=== PATIENT | male | born 1980 | race Caucasian/White ===

== ENCOUNTER 2018-07-17 19:22 | Emergency (ER) | payer BC ==
[2018-07-17 21:52] LABS: ANION GAP 14.3; CHLORIDE,CL 96 mmol/L (101-111); SODIUM,NA 133 mmol/L (135-145)
--- NOTE | 2018-07-17 22:09 | EDM.PDOC ---
ED HPI GENERAL MEDICAL PROBLEM - General Chief Complaint: Lower Extremity Injury/Pain Stated Complaint: SWOLLEN LEFT FOOT [id number] Time Seen by Provider: 07/17/18 22:06 Source of Information: Reports: Patient History Limitations: Reports: No Limitations - History of Present Illness INITIAL COMMENTS - FREE TEXT/NARRATIVE: This 38 yo male patient reports to the ED with pain and swelling in his left foot. The patient reports he has a history of a blood clot in his right lower extremity and compartment syndrome in his left lower extremity. Onset: Today Duration: Hour(s):, Constant Location: Reports: Upper Extremity, Left Quality: Reports: Ache, Dull Severity: Moderate Improves with: Reports: None Worsens with: Reports: None Context: Reports: Other Associated Symptoms: Reports: No Other Symptoms Left Feet Pain Score (Numeric/FACES): 7 - Related Data Allergies Allergy/AdvReac Type Severity Reaction Status Date / Time cephalexin monohydrate Allergy Rash Verified 07/17/18 21:03 [From Keflex] Home Meds: Home Meds Lisinopril/Hydrochlorothiazide [Lisinopril-Hctz 20-25 mg Tab] 1 each PO DAILY [History] Simvastatin 2 mg PO DAILY 03/21/18 [History] Ezetimibe 10 mg PO DAILY 07/17/18 [History] Warfarin Sodium [Jantoven] 15 mg PO DAILY 07/17/18 [History] Past Medical History Cardiovascular History: Reports: High Cholesterol, Hypertension Genitourinary History: Reports: Acute Renal Failure Musculoskeletal History: Reports: Other (See Below) Other Musculoskeletal History: compartment syndrome. bone spurt left foot Social & Family History - Tobacco Use Smoking Status *Q: Never Smoker - Caffeine Use Caffeine Use: Reports: Soda - Alcohol Use Date of Last Drink: 05/13/18 - Recreational Drug Use Recreational Drug Use: No Review of Systems - Review of Systems Review Of Systems: ROS reveals no pertinent complaints other than HPI. ED EXAM, GENERAL - Physical Exam Exam: See Below Exam Limited By: No Limitations General Appearance: Alert, WD/WN, Mild Distress Eye Exam: Bilateral Eye: EOMI, Normal Inspection, PERRL Ears: Normal External Exam, Normal Canal, Hearing Grossly Normal, Normal TMs Nose: Normal Inspection, Normal Mucosa, No Blood Throat/Mouth: Normal Inspection, Normal Lips, Normal Teeth, Normal Gums, Normal Oropharynx, Normal Voice, No Airway Compromise Head: Atraumatic, Normocephalic Neck: Normal Inspection, Supple, Non-Tender, Full Range of Motion Respiratory/Chest: No Respiratory Distress, Lungs Clear, Normal Breath Sounds, No Accessory Muscle Use, Chest Non-Tender Cardiovascular: Normal Peripheral Pulses, Regular Rate, Rhythm, No Edema, No Gallop, No JVD, No Murmur, No Rub GI/Abdominal: Normal Bowel Sounds, Soft, Non-Tender, No Organomegaly, No Distention, No Abnormal Bruit, No Mass (Male) Exam: Deferred Rectal (Males) Exam: Deferred Back Exam: Normal Inspection, Full Range of Motion, NT Extremities: Leg Pain (left lower leg swelling and increased tenderness to palpation of lower leg and foot) Neurological: Alert, Oriented, CN II-XII Intact, Normal Cognition, Normal Gait, Normal Reflexes, No Motor/Sensory Deficits Psychiatric: Normal Affect, Normal Mood Skin Exam: Warm, Dry, Intact, Normal Color, No Rash Lymphatic: No Adenopathy Course - Vital Signs Last Recorded V/S: Last Vital Signs Temp 37.0 C 07/17/18 20:49 Pulse 115 H 07/17/18 20:49 Resp 18 07/17/18 20:49 BP 110/69 07/17/18 20:49 Pulse Ox 97 07/17/18 20:49 - Orders/Labs/Meds Orders: Active Orders 24 hr Category Date Time Status Venous Doppler Lwr Ext Lt [US] Urgent Exams 07/17/18 22:07 Taken DME for Discharge [COMM] Urgent Oth 07/17/18 23:12 Ordered Labs: Laboratory Tests 07/17/18 07/17/18 07/17/18 Range/Units 21:24 21:24 21:24 WBC 11.0 H (5.0-10.0) 10^3/uL RBC 5.00 (4.6-6.2) 10^6/uL Hgb 14.4 (14.0-18.0) g/dL Hct 43.0 (40.0-54.0) % MCV 86.0 (80-100) fL MCH 28.8 (27.0-34.0) pg MCHC 33.5 (33.0-35.0) g/dL Plt Count 286 (150-450) 10^3/uL Neut % (Auto) 71.8 (42.2-75.2) % Lymph % (Auto) 18.7 L (20.5-50.1) % Tyler % (Auto) 8.4 H (2-8) % Eos % (Auto) 0.6 L (1.0-3.0) % Baso % (Auto) 0.5 (0.0-1.0) % PT 13.7 H (9.0-12.0) SEC INR 1.4 H (0.9-1.2) D-Dimer, Quantitative 711 H (0-400) ng/mL Sodium 133 L (135-145) mmol/L Potassium 3.3 L (3.6-5.0) mmol/L Chloride 96 L (101-111) mmol/L Carbon Dioxide 26.0 (21.0-31.0) mmol/L Anion Gap 14.3 BUN 16 (7-18) mg/dL Creatinine 1.0 (0.6-1.3) mg/dL Est Cr Clr Drug Dosing 102.40 mL/min Estimated GFR (MDRD) > 60 BUN/Creatinine Ratio 16.00 Glucose 95 (74-105) mg/dL Calcium 8.8 (8.4-10.2) mg/dl Total Bilirubin 0.7 (0.2-1.0) mg/dL AST 142 H (10-42) IU/L ALT 94 H (10-60) IU/L Alkaline Phosphatase 47 (42-121) IU/L Total Protein 7.5 (6.7-8.2) g/dl Albumin 3.8 (3.2-5.5) g/dl Globulin 3.7 Albumin/Globulin Ratio 1.03 Departure - Departure Time of Disposition: 23:13 Disposition: Home, Self-Care 01 Condition: Fair Clinical Impression: Strain of left foot Qualifiers: Encounter type: initial encounter Qualified Code(s): S96.912A - Strain of unspecified muscle and tendon at ankle and foot level, left foot, initial encounter - Discharge Information *PRESCRIPTION DRUG MONITORING PROGRAM REVIEWED*: Not Applicable *COPY OF PRESCRIPTION DRUG MONITORING REPORT IN PATIENT ROSA: Not Applicable Forms: ED Department Discharge Care Plan Goals: The patient was advised of the examination, lab and ultrasound results during the visit. The patient's left foot and ankle were wrapped with an KATE wrap. The patient was encouraged to rest, ice and elevate the extremity. If the patient has any additional symptoms or concerns, the patient should follow-up with his primary care facility or return to the emergency department. - My Orders Last 24 Hours: My Active Orders 07/17/18 22:07 Venous Doppler Lwr Ext Lt [US] Urgent 07/17/18 23:12 DME for Discharge [COMM] Urgent - Assessment/Plan Last 24 Hours: My Active Orders 07/17/18 22:07 Venous Doppler Lwr Ext Lt [US] Urgent 07/17/18 23:12 DME for Discharge [COMM] Urgent
== END 2018-07-17 23:25 | disposition home or self-care (01) ==
LOC: DL.ED 19:22
DX: S96.912A Strain of unspecified muscle and tendon at ankle and foot level, left foot, initial encounter (principal); I10 Essential (primary) hypertension; Z23 Encounter for immunization; Z79.01 Long term (current) use of anticoagulants; Z79.899 Other long term (current) drug therapy; Z88.1 Allergy status to other antibiotic agents; X50.9XXA Other and unspecified overexertion or strenuous movements or postures, initial encounter; Y99.0 Civilian activity done for income or pay
CPT/HCPCS: 36415; 80053; 85025; 85379; 85610; 93971; 99284-25

== ENCOUNTER 2021-08-11 14:04 | Emergency (ER) | payer BC, OTHER | END 2021-08-11 15:48 | disposition home or self-care (01) | LOC: DL.ED 14:04 | DX: S00.83XA Contusion of other part of head, initial encounter (principal); S50.812A Abrasion of left forearm, initial encounter; S50.811A Abrasion of right forearm, initial encounter; S80.212A Abrasion, left knee, initial encounter; E78.00 Pure hypercholesterolemia, unspecified; I10 Essential (primary) hypertension; Z88.1 Allergy status to other antibiotic agents; Z79.899 Other long term (current) drug therapy; W10.8XXA Fall (on) (from) other stairs and steps, initial encounter | CPT/HCPCS: 36415; 70450; 85610; 99284; 99284-25 ==

== ENCOUNTER → 2022-10-31 | Day surgery (SDC) | payer OTHER ==
[~2022-10-31] MED LIST: Dextrose 5%-0.45% NaCl 1,000 ML IV SCH; Midazolam 1 MG/ML 2 ML SDV IV ONE; Midazolam 1 MG/ML 2 ML SDV ONE; fentaNYL 100 MCG/2 ML SDV IV ONE; fentaNYL 100 MCG/2 ML SDV ONE
== END | disposition home or self-care (01) ==
LOC: DL.ENDO 06:49
PROVIDERS: ATTEND Internal Medicine Gastroenterology
DX: K29.50 Unspecified chronic gastritis without bleeding (principal); K21.9 Gastro-esophageal reflux disease without esophagitis; K22.10 Ulcer of esophagus without bleeding; E78.5 Hyperlipidemia, unspecified; I10 Essential (primary) hypertension; K27.9 Peptic ulcer, site unspecified, unspecified as acute or chronic, without hemorrhage or perforation; G47.33 Obstructive sleep apnea (adult) (pediatric); E66.09 Other obesity due to excess calories; Z88.1 Allergy status to other antibiotic agents; Z86.718 Personal history of other venous thrombosis and embolism; Z98.890 Other specified postprocedural states; Z68.42 Body mass index [BMI] 45.0-49.9, adult
CPT/HCPCS: 43239; 87077; J2250; J3010; J7042

== ENCOUNTER 2025-02-17 07:18 | Day surgery (SDC) | payer BC, OTHER ==
[2025-02-17] MEDS ORDERED: Propofol 200 MG/20 ML SDV IV ONE (07:19)
[2025-02-17] MEDS ORDERED: Lactated Ringers 1,000 ML IV ONE (07:19)
[2025-02-17] MEDS: Lactated Ringers 1,000 ML IV SCH (07:54)
[2025-02-17] MEDS ORDERED: Propofol 200 MG/20 ML SDV ONE (09:26)
== END 2025-02-17 09:52 | disposition home or self-care (01) ==
LOC: DL.ENDO 07:18
PROVIDERS: ATTEND Internal Medicine Gastroenterology
DX: Z12.11 Encounter for screening for malignant neoplasm of colon (principal); I10 Essential (primary) hypertension; K21.9 Gastro-esophageal reflux disease without esophagitis; G47.33 Obstructive sleep apnea (adult) (pediatric); E78.5 Hyperlipidemia, unspecified; E66.09 Other obesity due to excess calories; Z68.42 Body mass index [BMI] 45.0-49.9, adult; Z79.899 Other long term (current) drug therapy
CPT/HCPCS: 45378; J2704; J7120